=== PATIENT | female | born 1960 | race Caucasian/White ===

== ENCOUNTER 2016-12-19 06:01 | Day surgery (SDC) | payer OTHER ==
--- NOTE | 2016-12-18 17:38 | HP ---
PREOPERATIVE HISTORY AND PHYSICAL: DATE OF ADMISSION: 12/19/16 PROVIDER: Aries Toney MD * (DICTATED BY LEONOR VILA) CHIEF COMPLAINT: Left knee pain. HISTORY OF PRESENT ILLNESS: Karoline is a 56-year-old female who has been followed by Dr. Toney for ongoing complaints of left knee pain. 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 She has had difficulty walking on it, she has been using a brace. She has tried physical therapy, she has tried activity modification. She still reports significant swelling and more catching sensations in the knee. She also feels as though the knee gives way. She continues to have pain with limping and pain with squatting. She is interested in surgical intervention for the correction of the problem at this point. PAST MEDICAL HISTORY: High cholesterol, COPD, asthma, high blood pressure, type 2 diabetes, depression, anxiety and Lyme disease. PAST SURGICAL HISTORY: Tubal ligation and then subsequent reversal as well as a neuroma excision in her foot. She reports no complications with anesthesia with either of those procedures. CURRENT MEDICATIONS: 1. Aspirin 81 mg p.o. daily. 2. ProAir HFA 108 mcg/ACT 2 puffs inhaled q.4 hours as needed. 3. Spiriva 2.5 mcg/ACT 2 puffs daily. 4. Venlafaxine HCl ER 150 mg 1 p.o. daily. 5. Lisinopril 20 mg 1 p.o. daily. 6. Naproxen 500 mg 1 tab p.o. b.i.d. p.r.n. 7. Albuterol sulfate nebulizer as needed. 8. Flonase Allergy Relief 50 mcg/ACT 1 spray each nostril b.i.d. 9. Atorvastatin 40 mg 1 p.o. daily. 10. Doxycycline 100 mg p.o. b.i.d. ALLERGIES: WELLBUTRIN and LATEX. SOCIAL HISTORY: The patient lives with her spouse, she works as a FINISHER MACHINE; however , she has been out of work since the time of her injury. The patient does smoke just under 1 pack of cigarettes per day and has for several years. She denies alcoholic beverages. She does exercise regularly. REVIEW OF SYSTEMS: Constitutional: Negative for recent hospitalizations, fevers, chills, night sweats, or unexplained weight loss. HEENT: Negative for headaches, lightheadedness, or balance problems. Negative for sore throat, runny nose, frequent nose bleeds or congestion. Negative for blurred or double vision. Negative for any changes to her hearing. Cardiovascular: Negative for chest or arm pain with exertion, history of a heart attack, heart murmur, heart palpitations. Positive for high blood pressure. Negative for embolism or deep vein thrombosis. Respiratory: Positive for chronic cough and shortness of breath with exertion. Positive for history of COPD and asthma. Gastrointestinal : Negative for heartburn, nausea, or vomiting. Positive for diarrhea due to her antibiotics. Positive for occasional heartburn. Negative for GERD. Negative for constipation. Genitourinary: Negative for nighttime urination, frequency of urination, urinary tract infections, or kidney problems. Musculoskeletal: Negative for chronic back pain or recent facture. Skin: Negative for rashes, lesions, lumps, or sores. Neurologic negative for seizure , stroke, epilepsy, or depression. Positive for anxiety. Endocrine: Positive for diabetes. Negative for thyroid problems. Hematology: Negative for easy bleeding, bruising, or anemia. PHYSICAL EXAMINATION GENERAL: She is a well-developed, well-nourished pleasant female, in no acute distress at rest. She is alert and oriented x3 with appropriate mood and affect. VITAL SIGNS: The patient is 5 feet 4 inches, 185 pounds. Blood pressure 126/72 , pulse 110, respirations 16, temperature 98.4. HEENT: Normocephalic, atraumatic. Her hearing and vision are grossly intact. NECK: Her trachea is midline. RESPIRATORY: She has some diffuse expiratory wheezing bilaterally with decreased breath sounds to the bases. No appreciated rales or rhonchi. CARDIOVASCULAR: Regular rate and rhythm. No murmurs, rubs, or gallops. Normal S1 and S2. ABDOMEN: Soft, nondistended, and nontender. She has normoactive bowel sounds. EXTREMITIES: Her left lower extremity, skin is intact without abrasions or open wounds. She has a moderate joint effusion. She is tender about the fat pad anteriorly as well as the patellar tendon. She is mildly tender on the joint lines but not specifically. She has 3 to 115 degrees of flexion. She has a stable varus and valgus stress test and a stable Gregory's test. Calf is soft and nontender. She has sensation to light touch in all nerve distributions distally. She has 2+ dorsalis pedis pulse. IMPRESSION: Left knee fat pad friction syndrome. PLAN/RECOMMENDATIONS: The patient is to undergo a left knee arthroscopic surgery and debridement by Dr. Toney on 12/19/16. The risks, benefits, and postoperative course were discussed with the patient at length and she would like to proceed. All of her questions were answered to her full satisfaction. She has understanding to call should she develop any problems or concerns. LEONOR VILA [id number]/CPS #: [id number] MTDD
[~2016-12-19 06:01] MED LIST: Buffered Lidocaine 0.9% SYRIN* 5 ML/SYR SYRINGE INTRADERM ONE; Dexamethasone IV* 4 MG/ML 1 ML (4 MG) IV SLOW PU ONE; Famotidine IV* 10 MG/ML 2 ML (20 mg) IV ONE; Levalbuterol 0.63MG/3ML NEB INH ONE
[2016-12-19] MEDS ORDERED: Dexamethasone IV* 4 MG/ML 1 ML (4 MG) ONE (06:09)
[2016-12-19] MEDS ORDERED: Famotidine IV* 10 MG/ML 2 ML (20 mg) ONE (06:09)
[2016-12-19] MEDS ORDERED: Buffered Lidocaine 0.9% SYRIN* 5 ML/SYR SYRINGE ONE (06:09)
[2016-12-19] MEDS ORDERED: Levalbuterol 1.25MG/0.5ML NEB ONE (06:10)
[2016-12-19] MEDS ORDERED: Bupivacaine 0.25% SDV* 30 ML ONE (06:52)
[2016-12-19] MEDS ORDERED: Ondansetron INJ* 2 MG/ML VIAL ONE (07:15)
[2016-12-19] MEDS ORDERED: Propofol* 10 MG/ML 20 ML BTL IV PUSH ONE (07:15)
[2016-12-19] MEDS ORDERED: Ketorolac INJ* 30 MG/ML 1 ML VIAL ONE (07:15)
[2016-12-19] MEDS ORDERED: Midazolam* 1 MG/ML 5 ML VIAL (5 MG) ONE (07:15)
[2016-12-19] MEDS ORDERED: Chloroprocaine 2%* 20 ML VIAL ONE (07:16)
[2016-12-19] MEDS ORDERED: DiMENhydriNATE IV* 50 MG/ML VIAL IV PUSH PRN (08:02)
[2016-12-19] MEDS ORDERED: fentaNYL* 50 MCG/ML 2 ML VIAL (100 MCG VIAL) IV PRN (08:02)
[2016-12-19] MEDS ORDERED: oxyCODONE/Acetamin 5/325 MG* TAB PO PRN (08:02)
[2016-12-19] MEDS ORDERED: Ondansetron INJ* 2 MG/ML VIAL IV PRN (08:02)
[2016-12-19] MEDS ORDERED: methylPREDNISolone ACETATE 80* 80 MG/ML 1 ML VIAL ONE (08:18)
[2016-12-19 10:07] VITALS: BP 109/87
--- NOTE | 2016-12-19 13:44 | OP ---
DATE OF OPERATION: 12/19/16 [facility] DATE OF : 58 SURGEON: Aries Toney MD. OPERATING TABLE ASSEMBLER: LEONOR Yang. An neurosurgical physician assistant was needed for the entirety of the case to help with positioning, retraction, and was utilized throughout all portions of the case. ANESTHESIOLOGIST: Dr. Alvarado. ANESTHESIA: Spinal with MAC. PRE-OP DIAGNOSIS: Left knee patellar tendinitis and fat pad impingement. POST-OP DIAGNOSIS: Fat pad impingement, patellar tendinitis, chondrosis along the patellofemoral medial compartment as well as loose body. OPERATIVE PROCEDURE: 1. Left knee arthroscopy with anterior medial lateral synovectomy. 2. Chondroplasty of the medial compartment and patellofemoral compartment as well as removal of loose bodies x2, greater than 5 mm. 3. Intraarticular injection of 80 mg of Depo-Medrol. INDICATIONS: Karoline Garcia is 56-year-old female who sustained a work-related injury to her knee. She has failed conservative management. She had tried extensive physical therapy and had good response to injection. Her working diagnosis was impingement. She did not demonstrate significant arthritis on her MRI, and, therefore, surgery was discussed. Risks and benefits of the surgery versus nonoperative treatment were discussed at length. They include, but were not limited to, bleeding, infection, damage to nerves, vessels, surrounding structures, wound nonhealing, persistent pain, need for further surgery, scarring, stiffness, persistent pain, incomplete relief of symptoms, risk of DVT, risk of anesthesia, and need for further surgery. She has elected to proceed. DESCRIPTION OF PROCEDURE: The patient was greeted in the preoperative area by the attending surgeon. Correct extremity was marked and consent was confirmed. The patient was brought back to the operating suite where she was placed in the supine position on the operating table. She then was sat up and underwent a spinal anesthesia, after which the left leg was examined. She had a mild effusion. Range of motion is about 0 to 130 degrees, stable to varus and valgus stress. Stable Gregory. An unsterile tourniquet was placed high on the proximal thigh. A lateral post was positioned. The leg was then prepped and draped in the usual sterile fashion beginning with chlorhexidine soap, scrub and alcohol wipe and a final prep with ChloraPrep. After appropriate surgical pause indicating side, site, and procedure, administration of antibiotics, the anterolateral portal was made with a #11 blade. The scope was introduced into the joint. The joint was examined. There was grade 2 changes of the patella, grade 1 changes of the trochlea. There was obvious medial plica that was present. There was also a lateral plica that was apparent or a large shelf of synovial tissue that was present laterally. The scope was brought along the medial gutter and there were small loose bodies that were evident. The knee was then brought into full extension. There was abundant fat pad that was present there as well as some chondrosis along the edges of the notch. The medial port was made in outside-in fashion. The shaver was used to remove the abundant fat pad that was present as well as the medial plica and lateral shelf of tissues. The tissue is very friable. The electrocautery device was then used to maintain hemostasis at all times. At this point, the medial compartment was evaluated. The meniscus was intact. The medial femoral condyle had areas of grade 2 changes with unstable flaps as well as a large loose body that was present that was about 5 mm. The second one was identified as well in the notch. This was then removed. The shaver was then used to debride the medial femoral condyle. The medial tibial plateau had an area of grade 4 changes along the periphery just under the medial meniscus. The rest of the tibial plateau had grade 3 and 2 changes as well as a small area of grade 4 complete absence of cartilage. The shaver was used to debride the medial femoral condyle. The knee was placed in [id number] and the lateral compartment was examined. The lateral femoral condyle, lateral tibial plateau had grade 0 to 1 changes. Lateral meniscus was intact. The knee was placed in full extension. The remaining synovitis was then carefully removed and hemostasis obtained. The unstable fragments were debrided back and chondroplasty was completed. Once the procedure was completed, all fluid and debris was then removed from the knee. The knee was thoroughly lavaged. Final images were obtained. The portals were closed with 3-0 nylon in an interrupted fashion. The knee was intra-articularly injected with 80 mg of Depo-Medrol and 30 cc of 0.25% Marcaine plain. Sterile dressings were applied as well as cryo/ Cuff. She was awoken from anesthesia and transferred to PACU in stable condition. POSTOPERATIVE PLAN: She will be weightbearing as tolerated. She will be discharged on pain medications as well as aspirin. She will be allowed to work on range of motion. I will likely place her on physical therapy next week. She will follow up in the office in 10 to 14 days. She will be. like I said, on aspirin for DVT prophylaxis. Also, she has no previous family history or personal history. [id number]/[facility] #: [id number] EMMA
== END 2016-12-19 10:28 | disposition home or self-care (01) ==
LOC: OR 06:01
PROVIDERS: ATTEND Orthopaedic Surgery
DX: M67.52 Plica syndrome, left knee (principal); M76.52 Patellar tendinitis, left knee; M25.462 Effusion, left knee; M25.862 Other specified joint disorders, left knee; M23.42 Loose body in knee, left knee; E11.65 Type 2 diabetes mellitus with hyperglycemia; Z79.84 Long term (current) use of oral hypoglycemic drugs; F17.210 Nicotine dependence, cigarettes, uncomplicated; J44.9 Chronic obstructive pulmonary disease, unspecified; I10 Essential (primary) hypertension
CPT/HCPCS: A9270-GY; J1040; J1100; J1885; J2250; J2400; J2405; J2704

== ENCOUNTER 2017-05-30 11:32 | Inpatient (IN) | payer OTHER ==
--- NOTE | 2017-06-28 21:01 | HP ---
HISTORY AND PHYSICAL: DATE OF ADMISSION/SURGERY: 07/09/17 DATE OF OFFICE VISIT: 06/26/17 SURGEON: Shante Ridley MD *(DICTATED BY LEONOR ARMSTRONG) PROCEDURE: Left total knee arthroplasty. CHIEF COMPLAINT: Left knee pain. HISTORY OF PRESENT ILLNESS: Ms. Garcia is a 56-year-old female with continued complaints of left knee pain secondary to end-stage osteoarthritis. She has failed conservative management and elected to proceed with a left total knee arthroplasty, which is scheduled for 07/09/[address] Ridley. PAST MEDICAL HISTORY: Sleep apnea, diabetes, COPD, and hypertension. PAST SURGICAL HISTORY: Tubal ligation and reversal of tubal ligation, laparoscopy, and nerve surgery on both feet. CURRENT MEDICATIONS: 1. Percocet. 2. Rosuvastatin calcium 40 mg daily. 3. Lisinopril 40 mg daily. 4. Nicotrol 10 mg as needed. 5. Ibuprofen 600 mg as needed. 6. Aspirin 81 mg daily. 7. Venlafaxine 225 mg daily nebulizer as needed. 8. Vitamin D. 9. Spiriva. 10. Ventolin inhaler. 11. CPAP. 12. Victoza. ALLERGIES: To WELLBUTRIN and LATEX. FAMILY HISTORY: Prostate and bladder cancer, multiple sclerosis, stroke, and diabetes. SOCIAL HISTORY: She is a 56-year-old female. She lives alone. She smokes about a pack a day for the last 30 years. She denies use of drugs or alcohol. REVIEW OF SYSTEMS: A complete 14-point review of systems was reviewed with the patient, was positive for diabetes, GERD, COPD, and shortness of breath. She denies history of DVT, PE, hepatitis C, or HIV. PHYSICAL EXAMINATION GENERAL: She is well-developed, well-nourished, in no acute distress. VITAL SIGNS: She stands 5 feet 4 inches tall, weighs 204 pounds. Her blood pressure is 130/84, her heart rate is 100. HEENT: Normocephalic, atraumatic. NECK: Supple. No palpable lymph nodes. PULMONARY: The lungs are clear to auscultation bilaterally. CARDIO: Regular rate and rhythm. Strong S1, S2. ABDOMEN: Soft, nontender, and nondistended. NEUROLOGIC: She is alert and oriented x3. Cranial nerves II through XII are intact. MUSCULOSKELETAL: Left lower extremity: The skin is intact. There are no open wounds or abrasions. She has a moderate effusion in the left knee, 10 to 120 degrees of flexion. Some tenderness over the medial joint line. No varus or valgus instability. 2+ dorsalis pedis pulses. 5/5 lower extremity strength and intact sensation. ASSESSMENT AND PLAN: Ms. Garcia is a 56-year-old female, who has end-stage osteoarthritis of the left knee. She has failed conservative management and elected to proceed with a left total knee arthroplasty, which is scheduled for 07/09/[address] Ridley discussed the risks and benefits of the surgery at today's visit. All her questions were answered. Coumadin was sent to her pharmacy for postoperative DVT prophylaxis. She has a prescription for Percocet at this time. She will follow up with Dr. Ridley 2 weeks after the surgery. LEONOR ARMSTRONG [id number]/[facility] #: [id number] MTDVaibhav
[2017-07-08] MEDS ORDERED: Buffered Lidocaine 0.9% SYRIN* 5 ML/SYR SYRINGE INTRADERM ONE (13:49)
[2017-07-09] MEDS ORDERED: Famotidine IV* 10 MG/ML 2 ML (20 mg) IV ONE (06:00)
[2017-07-09] MEDS ORDERED: Gabapentin CAP(*) 300 MG PO ONE (06:00)
[2017-07-09] MEDS ORDERED: Levalbuterol 0.63MG/3ML NEB* UNIT OF USE INH ONE ×2 (07:00→13:10)
[2017-07-09] MEDS ORDERED: ceFAZolin 2 GM in 100 MLS NS (*) BAG IVPB ONE (08:58)
[2017-07-09] MEDS ORDERED: Levalbuterol 1.25MG/0.5ML NEB ONE (08:58)
[2017-07-09] MEDS ORDERED: Famotidine IV* 10 MG/ML 2 ML (20 mg) ONE (08:58)
[2017-07-09] MEDS ORDERED: Buffered Lidocaine 0.9% SYRIN* 5 ML/SYR SYRINGE ONE (08:58)
[2017-07-09] MEDS ORDERED: Gabapentin CAP(*) 300 MG ONE (09:18)
[2017-07-09] MEDS ORDERED: Lidocaine 1% INJ* 10 MG/ML 30 ML SDV ONE (10:20)
[2017-07-09] MEDS ORDERED: ROPIVACAINE 5 MG/ML 30 ML BTL (0.5%) ONE (10:21)
[2017-07-09] MEDS ORDERED: fentaNYL* 50 MCG/ML 2 ML VIAL (100 MCG VIAL) ONE (10:24)
[2017-07-09] MEDS ORDERED: Midazolam* 1 MG/ML 5 ML VIAL (5 MG) ONE (10:24)
[2017-07-09] MEDS ORDERED: Propofol* 10 MG/ML 20 ML BTL IV PUSH ONE (12:36)
[2017-07-09] MEDS ORDERED: Ketorolac INJ* 30 MG/ML 1 ML VIAL ONE (12:36)
[2017-07-09] MEDS ORDERED: Ondansetron INJ* 2 MG/ML VIAL ONE (12:36)
[2017-07-09] MEDS ORDERED: EPHEDrine (Pressors)* 50 MG/ML VIAL ONE (12:36)
[2017-07-09] MEDS ORDERED: Dexamethasone IV* 4 MG/ML 1 ML (4 MG) ONE (12:36)
[2017-07-09] MEDS ORDERED: diPHENhydraMINE IV* 50 MG/ML 1 ml VIAL (BENADRYL) IV PRN ×2 (13:10→13:46)
[2017-07-09] MEDS ORDERED: Levalbuterol 0.63MG/3ML NEB* UNIT OF USE INH PRN (13:10)
[2017-07-09] MEDS ORDERED: Naloxone* 0.4 MG/ML 1 ML VIAL IV PRN (13:10)
[2017-07-09] MEDS ORDERED: fentaNYL* 50 MCG/ML 2 ML VIAL (100 MCG VIAL) IV PRN (13:10)
[2017-07-09] MEDS ORDERED: Ondansetron INJ* 2 MG/ML VIAL IV PRN (13:46)
[2017-07-09] MEDS ORDERED: Magnesium Hydroxide LIQ* 30 ML UDC PO PRN (13:46)
[2017-07-09] MEDS ORDERED: Ondansetron TAB* 4 MG PO PRN (13:46)
[2017-07-09] MEDS ORDERED: Morphine INJ* 2 MG/ML 1 ML CARPUJECT IV PRN (13:46)
[2017-07-09] MEDS ORDERED: oxyCODONE/Acetamin 5/325 MG* TAB PO PRN (13:46)
[2017-07-09] MEDS ORDERED: Bisacodyl SUPP* 10 MG SUPP PR PRN (13:46)
[2017-07-09] MEDS ORDERED: Docusate CAP* 100 MG PO PRN (13:46)
[2017-07-09] MEDS ORDERED: ceFAZolin 1 GM in Dextrose (*) 1 GM/50 ML BAG IVPB SCH (14:00)
[2017-07-09] MEDS ORDERED: Albuterol HFA INHALER* 8 gm MDI INH PRN (14:01)
[2017-07-09] MEDS ORDERED: OXYGEN 1 UNIT INH PRN (14:01)
[2017-07-09] MEDS: oxyCODONE/Acetamin 5/325 MG* TAB PO PRN ×2 (15:07→15:56)
[2017-07-09] MEDS ORDERED: oxyCODONE/Acetamin 5/325 MG* TAB ONE ×2 (15:07→15:55)
--- NOTE | 2017-07-09 15:12 | RAD ---
HISTORY: Status post left knee arthroplasty COMPARISONS: February 27, 2017 VIEWS: 2, Frontal and lateral views of the left kidney FINDINGS: BONE DENSITY: Normal. BONES: The patient is status post left knee arthroplasty. There is no hardware failure or osteolysis. JOINTS: The patient is status post left knee arthroplasty. ALIGNMENT: There is no dislocation. SOFT TISSUES: There is post surgical change to the soft tissues. OTHER FINDINGS: None. IMPRESSION: STATUS POST LEFT KNEE ARTHROPLASTY.
[2017-07-09] MEDS ORDERED: Dextrose 50% Syringe 50 ML* 25 GM/50 ML SYRINGE IV PUSH PRN (15:18)
[2017-07-09] MEDS ORDERED: Albuterol/Ipratropium NEB.SOL* Albuterol 2.5 MG/Ipratropium 0.5 MG 3 ML INH PRN (15:22)
[2017-07-09] MEDS ORDERED: Mouth Piece, Nicotine* 1 EACH CARTRIDGE INH PRN (15:31)
[2017-07-09] MEDS ORDERED: Nicotine Inhaler* 10 MG AMP INH PRN (15:31)
[2017-07-09] MEDS ORDERED: LIRAGLUTIDE SUBCUT SCH (18:00)
[2017-07-09] MEDS ORDERED: Warfarin TAB(*) 6 MG PO ONE (18:00)
[2017-07-09] MEDS ORDERED: [UNRECOGNIZED DRUG - OTHER] SUBCUT SCH (18:00)
[2017-07-09] MEDS: Nicotine PATCH 21 MG/24 HR* PATCH TRANSDERM SCH (18:07)
[2017-07-09] MEDS: Venlafaxine EXT RELEASE CAP* 75 MG PO SCH (18:09)
[2017-07-09] MEDS: Lisinopril TAB* 10 MG PO SCH (18:10)
[2017-07-09] MEDS: Atorvastatin* 40 MG TAB PO SCH (18:10)
[2017-07-09] MEDS: Enoxaparin(*) 40 MG/0.4 ML SYR SUBCUT SCH (18:10)
[2017-07-09] MEDS: Insulin LISPRO* 1 UNITS UNIT SUBCUT SCH ×2 (18:11→21:40)
[2017-07-09] MEDS: Cyclobenzaprine TAB* 10 MG PO PRN (18:23)
[2017-07-09] MEDS: oxyCODONE TAB* 5 MG TAB PO PRN (18:59)
[2017-07-09] MEDS: ceFAZolin 1 GM* Q8H x 3 doses IVPB SCH ×2 (20:02)
[2017-07-09] MEDS ORDERED: Gabapentin CAP(*) 300 MG PO SCH (21:00)
--- NOTE | 2017-07-09 21:19 | CONS ---
ADDENDUM NOW INCLUDED ON THIS REPORT CC: Rohini Vallejo NP; Dr. Ridley * CONSULTATION REPORT: DATE OF CONSULT: 07/09/17 PRIMARY CARE PROVIDER: Rohini Vallejo NP REASON FOR CONSULTATION: Management of hypertension, COPD and diabetes in a patient after a knee surgery. HISTORY OF PRESENT ILLNESS: Mrs. Garcia is a 56-year-old female with history of COPD who still smokes a pack a day of cigarettes. Has history also of diabetes and hypertension and presented to the hospital for elective left knee replacement. The patient is seen postoperatively in the PACU unit. She is currently unsure how she feels after the surgery, but she has no acute complaints. She is being seen for comanagement of medical comorbidities after an elective left knee surgery. PAST MEDICAL HISTORY: 1. Obstructive sleep apnea, noncompliant with CPAP. 2. Diabetes type 2. 3. COPD, not oxygen dependent. 4. History of hypertension. 5. Status post tubal ligation. 6. History of Black neuroma removal in both feet. MEDICATIONS: At home include: 1. Gabapentin 300 mg at bedtime. 2. Percocet on a p.r.n. basis. 3. Effexor 225 mg daily. 4. Spiriva 1 inhalation daily. 5. Metformin 500 mg b.i.d. 6. Ibuprofen on a p.r.n. basis. 7. Lipitor 40 mg daily. 8. Aspirin 81 mg daily. 9. Victoza 0.6 mL subcutaneously daily. 10. Breo Ellipta 1 puff daily. 11. Albuterol inhaler on a p.r.n. basis. 12. Vitamin D3 50,000 units weekly. 13. Lisinopril 40 mg daily. ALLERGIES: WELLBUTRIN, LATEX and MORPHINE. FAMILY HISTORY: Positive for father who secondary to prostate cancer at the age of 73. Mother with history of multiple sclerosis and strokes who in her 60s. SOCIAL HISTORY: The patient has a history of smoking 1 pack per day. She currently smokes and has been doing so for over 30 years. She denies any drug or alcohol use. She lives alone. She has a daughter, Cynthia Garcia, who is her surrogate. The patient plans to stay with her daughter postoperatively. REVIEW OF SYSTEMS: Please see history of present illness. All the remaining 12 systems are reviewed with the patient and are otherwise negative. PHYSICAL EXAM: Blood pressure of 141/71, heart rate of 82 and regular, respiratory rate 16, oxygen saturation 97% on 2 L of oxygen nasal cannula, temperature 97.5. General: The patient is a very pleasant 56-year-old female, who is in no acute distress. Alert, awake, and oriented x3. HEENT: Head atraumatic, normocephalic. Eyes: Pupils are equal, reactive to light and accommodation. Oropharynx clear. Mucosa moist. Neck: Supple. No JVD, no bruits bilaterally. Cardiovascular: Regular rate and rhythm with no murmur. Respiratory: Scant wheezes at bilateral bases, otherwise clear. Abdomen: Soft , nontender. Bowel sounds are present in all 4 quadrants. Extremities: There is no edema. Pulses +2 bilaterally. No clubbing or cyanosis. The left knee is in the postoperative state with cryo unit in place and a drain. Neuro Evaluation: Speech clear. Cranial nerves II through XII grossly intact. Motor strength is 5/5 bilaterally. The postoperative knee was not evaluated for range of motion. LABORATORY DATA: None currently. ASSESSMENT AND PLAN: 1. In regards to the patient's postoperative status of status post left knee replacement, the patient already was started on Lovenox and Coumadin per Orthopedic Surgery. 2. For hypertension, her lisinopril is going to be continued. 3. For her chronic obstructive pulmonary disease, the patient is going to be placed on DuoNebs on a p.r.n. basis. She is going to be continued with Breo Ellipta as well as Spiriva on a scheduled basis. Currently, she does not appear to be in exacerbation. 4. For her dyslipidemia, Lipitor is going to be continued. 5. In regards to the DVT prophylaxis, please see above. The patient was already placed on Lovenox and Coumadin. Thank you very much for allowing me to see your patient in consultation. We will see the patient on a daily basis. TIME SPENT: Approximately 55 minutes were spent on consultation of this patient. ADDENDUM: 07/10/17 3859 Please note that the very next day after my initial consultation with the patient when she was seen in PACU, when the patient saw me, she did not recall my face. When I asked her about the use of prednisone and oxygen previously, she stated that she is not using it. Today, she stated that of course Dr. Ramirez prescribed her prednisone that she had been on for the past week and she is taking 20 mg a day. She also stated that she was prescribed oxygen per Dr. Ramirez to be used continuously. She stated that something happened to the prescription and she actually did not have that oxygen delivered to her house yet. I suspect that part of the information that I received from the patient postoperatively was confounded by the patient being on IV narcotics. [id number]/CPS #: [id number]/CPS #: [id number] [facility] CAMPUSVaibhav
[2017-07-09] MEDS: Magnesium Hydroxide LIQ* 30 ML UDC PO SCH (21:40)
[2017-07-09] MEDS: Nicotine Patch Removal NOTE PATCH OFF SCH (21:43)
[2017-07-09] MEDS ORDERED: HYDROmorphone INJ* 1 MG/ML CARPUJECT SYRINGE IV PRN (22:18)
[2017-07-09] MEDS ORDERED: Ketorolac INJ* 15 MG/ML 1 ML VIAL IV PUSH ONE (22:18)
[2017-07-10] MEDS: oxyCODONE TAB* 5 MG TAB PO PRN ×2 (03:01→07:18)
[2017-07-10] MEDS: ceFAZolin 1 GM* Q8H x 3 doses IVPB SCH ×4 (03:54→12:53)
[2017-07-10 06:19] LABS: Hematocrit 29 % (35-47); Hemoglobin 9.5 g/dl (12.0-16.0); Mean Platelet Volume 7 um3 (7.4-10.4); Platelet Count 218 10^3/ul (150-450)
[2017-07-10 06:27] LABS: INR 0.91 (0.77-1.02)
[2017-07-10 06:33] LABS: EGFR Non-African American 107.2 (>60)
[2017-07-10] MEDS: Insulin LISPRO* 1 UNITS UNIT SUBCUT SCH ×4 (08:08→20:18)
[2017-07-10] MEDS: metFORMIN* 500 MG TAB PO SCH ×2 (08:08→16:51)
[2017-07-10] MEDS ORDERED: Tiotropium CAP.INH* CAP.INH/18 MCG (USE ORDER SET !) INH SCH (09:00)
[2017-07-10] MEDS ORDERED: Spiriva Inhaler DEVICE* 1 EACH DEVICE INH ONE (09:00)
[2017-07-10] MEDS ORDERED: predniSONE TAB* 20 MG PO SCH (09:00)
[2017-07-10] MEDS: PTO: Fluticasone/Vilanterol MDI(NF) 200/25 MDI INH SCH (09:04)
[2017-07-10] MEDS: Magnesium Hydroxide LIQ* 30 ML UDC PO SCH ×2 (09:04→20:17)
[2017-07-10] MEDS: PTO: Tiotropium Respimt 2.5 mcg(NF) 1 PUFF MDI INH SCH (09:04)
[2017-07-10] MEDS: Nicotine PATCH 21 MG/24 HR* PATCH TRANSDERM SCH (09:04)
[2017-07-10] MEDS: Vitamin THERAPEUTIC TAB PO SCH (09:05)
[2017-07-10] MEDS ORDERED: HYDROcodone/ACETAMIN 5-325 MG* 1 TAB PO PRN (09:33)
--- NOTE | 2017-07-10 09:39 | PN ---
Progress Note - Progress Note Date of Service: 07/10/17 SOAP: Subjective: []Patient seen at bedside. Left knee is currently painful in the joint and in the thigh. She takes oxycodone at home and does not feel oxycodone or percocet are controlling her pain. Morphine makes her feel very anxious and she does not want to take it. Denies leg numbness, CP, SOB, fever, chills or nausea. Objective: [] Vital Signs Temp 96.8 F 07/10/17 07:32 Pulse 92 07/10/17 07:32 Resp 16 07/10/17 07:32 BP 143/89 07/10/17 07:32 Pulse Ox 95 07/10/17 07:32 Intake & Output 07/09/17 07/10/17 07/10/17 18:59 06:59 18:59 Intake Total 2600 1690 Output Total 700 1075 Balance 1900 615 Weight 201 lb Intake: IV Fluids 2600 1035 ABX - CEFAZOLIN 55 LR 2600 980 IVPB 55 ABX - CEFAZOLIN 55 Oral 600 Output: Urine 550 Kinsey 700 525 Laboratory Last Values Hgb 9.5 g/dl (12.0-16.0) L 07/10/17 05:48 Hct 29 % (35-47) L 07/10/17 05:48 Plt Count 218 10^3/ul (150-450) 07/10/17 05:48 MPV 7 um3 (7.4-10.4) L 07/10/17 05:48 INR (Anticoag Therapy) 0.91 (0.77-1.02) 07/10/17 05:48 Sodium 135 mmol/L (133-145) 07/10/17 05:48 Potassium 4.6 mmol/L (3.5-5.0) 07/10/17 05:48 Chloride 105 mmol/L (101-111) 07/10/17 05:48 Carbon Dioxide 26 mmol/L (22-32) 07/10/17 05:48 Anion Gap 4 mmol/L (2-11) 07/10/17 05:48 BUN 13 mg/dL (6-24) 07/10/17 05:48 Creatinine 0.58 mg/dL (0.51-0.95) 07/10/17 05:48 Est GFR ( Amer) 137.8 (>60) 07/10/17 05:48 Est GFR (Non-Af Amer) 107.2 (>60) 07/10/17 05:48 BUN/Creatinine Ratio 22.4 (8-20) H 07/10/17 05:48 Glucose 203 mg/dL (70-100) H 07/10/17 05:48 POC Glucose (mg/dL) 302 mg/dL (70-100) H 07/09/17 21:26 Calcium 8.8 mg/dL (8.6-10.3) 07/10/17 05:48 General: Well appearing, NAD LLE: Left knee dressing CDI, cryo unit in use. DF/PF intact. DP 2+. Sensation intact and capillary refill less than two seconds distally. BL LE: Calves supple and nontender without erythema, edema or palpable cords. Assessment: []POD 1 s/p left total knee arthroplasty 07/09, Dr. Ridley Plan: []WBAT PT/OT Lovenox, coumadin 8 mg today Plan for DC tomorrow if pain controlled with PO meds. Changed from percocet to norco and cyclobenzaprine
[2017-07-10] MEDS: HYDROcodone/ACETAMIN 5-325 MG* 1 TAB PO PRN ×3 (11:05→23:32)
[2017-07-10] MEDS: Cyclobenzaprine TAB* 10 MG PO PRN ×2 (11:05→20:18)
--- NOTE | 2017-07-10 13:30 | PN ---
Subjective Date of Service: 07/10/17 Interval History: Pt feels fine, although the left knee hurts and she falls sleep" all the time". Objective Active Medications: Hydrocodone Bitart/Acetaminophen ([place] 5-325 Tab*) 1 tab PO Q4H PRN PRN Reason: PAIN - MILD TO MODERATE Hydrocodone Bitart/Acetaminophen ([place] 5-325 Tab*) 2 tab PO Q4H PRN PRN Reason: PAIN - MODERATE TO SEVERE Last Admin: 07/10/17 11:05 Dose: 2 tab Albuterol (Ventolin Hfa Inhaler*) 2 puff INH Q4H PRN PRN Reason: SHORTNESS OF BREATH Albuterol/Ipratropium (Duoneb (Albuterol 2.5 Mg/Ipratropium 0.5 Mg)) 1 neb INH Q6H PRN PRN Reason: SOB/WHEEZING Atorvastatin Calcium (Lipitor*) 40 mg PO QPM [facility] Last Admin: 07/09/17 18:10 Dose: 40 mg Bisacodyl (Dulcolax Supp*) [address] DAILY PRN PRN Reason: constipation Cyclobenzaprine HCl (Flexeril Tab*) 10 mg PO TID PRN PRN Reason: SPASMS Last Admin: 07/10/17 11:05 Dose: 10 mg Device (Nicotine Mouth Piece*) 1 each INH .USE WITH NICOTROL PRN PRN Reason: CRAVING Dextrose (D50w Syringe 50 Ml*) 12.5 gm IV PUSH .FOR FS < 60 - SS PRN PRN Reason: FS < 60 Diphenhydramine HCl (Benadryl Iv*) 25 mg IV Q6H PRN PRN Reason: itching Docusate Sodium (Colace Cap*) 100 mg PO BID PRN PRN Reason: CONSTIPATION Enoxaparin Sodium (Lovenox(*)) 40 mg SUBCUT Q24H [facility] Last Admin: 07/09/17 18:10 Dose: 40 mg Fluticasone/Vilanterol (Breo Ellipta Mdi 200/25(Nf)) 1 puff INH QAM [facility] Last Admin: 07/10/17 09:04 Dose: 1 puff Gabapentin (Neurontin Cap(*)) 300 mg PO BEDTIME [facility] Last Admin: 07/09/17 21:36 Dose: 300 mg Hydromorphone HCl (Dilaudid Injic*) 0.5 mg IV Q2H PRN PRN Reason: PAIN Insulin Human Lispro (Humalog*) 0 units SUBCUT ACHS [facility] PRN Reason: Protocol Last Admin: 07/10/17 12:52 Dose: 4 units Lisinopril (Prinivil Tab*) 40 mg PO QPM [facility] Last Admin: 07/09/17 18:10 Dose: 40 mg Magnesium Hydroxide (Milk Of Magnesia Liq*) 30 ml PO BID [facility] Last Admin: 07/10/17 09:04 Dose: Not Given Magnesium Hydroxide (Milk Of Magnesia Liq*) 30 ml PO Q6H PRN PRN Reason: constipation Metformin HCl (Glucophage*) 500 mg PO BID WITH MEALS [facility] Last Admin: 07/10/17 08:08 Dose: 500 mg Multivitamins (Theragran Tab*) 1 tab PO DAILY [facility] Last Admin: 07/10/17 09:05 Dose: 1 tab Nicotine (Nicotine Patch 21 Mg/24 Hr*) 1 patch TRANSDERM DAILY [facility] Last Admin: 07/10/17 09:04 Dose: 1 patch Nicotine (Nicotine Inhaler*) 10 mg INH Q2H PRN PRN Reason: CRAVING Ondansetron HCl (Zofran Inj*) 4 mg IV Q6H PRN PRN Reason: nausea Ondansetron HCl (Zofran Tab*) 4 mg PO Q6H PRN PRN Reason: NAUSEA Pharmacy Profile Note (Nicotine Patch Removal Note*) 1 note PATCH OFF 2100 [facility] Last Admin: 07/09/17 21:43 Dose: Not Given Pharmacy Profile Note (Coumadin Daily Reminder*) 1 note FOLLOW UP 1700 [facility] Prednisone (Deltasone Tab*) 10 mg PO DAILY [facility] Tiotropium [place] (Spiriva Respimat 2.5 Mcg(Nf)) 2 puff INH DAILY [facility] Last Admin: 07/10/17 09:04 Dose: Not Given Venlafaxine HCl (Effexor Xr Cap*) 225 mg PO QPM [facility] Last Admin: 07/09/17 18:09 Dose: 225 mg Warfarin Sodium (Coumadin Tab(*)) 8 mg PO ONCE@1700 ONE PRN Reason: Protocol Stop: 07/10/17 17:01 Vital Signs - 8 hr 07/10/17 07/10/17 07/10/17 05:37 07:18 07:31 Temperature Pulse Rate Respiratory 16 18 18 Rate Blood Pressure (mmHg) O2 Sat by Pulse 93 Oximetry 07/10/17 07/10/17 07/10/17 07:32 11:05 11:30 Temperature 96.8 F 98.7 F Pulse Rate 92 98 Respiratory 16 18 16 Rate Blood Pressure 143/89 117/62 (mmHg) O2 Sat by Pulse 95 92 Oximetry 07/10/17 12:53 Temperature Pulse Rate Respiratory 18 Rate Blood Pressure (mmHg) O2 Sat by Pulse Oximetry Oxygen Devices in Use Now: None - 02 on RA at 86%, placed on 2 L 02, sats up to 92%, pt in NAD Appearance: 56 yo F in nAD, aAOx3 Eyes: No Scleral Icterus, PERRLA Ears/Nose/Mouth/Throat: NL Teeth, Lips, Gums, Mucous Membranes Moist Neck: NL Appearance and Movements; NL JVP, Trachea Midline Respiratory: Symmetrical Chest Expansion and Respiratory Effort, - - scant bibasiliar wheezes Cardiovascular: NL Sounds; No Murmurs; No JVD, RRR Abdominal: NL Sounds; No Tenderness; No Distention Lymphatic: No Cervical Adenopathy Extremities: No Edema, No Clubbing, Cyanosis Skin: No Rash or Ulcers, No Nodules or Sclerosis, - - surgical dressings to left knee, not removed Neurological: Alert and Oriented x 3, NL Muscle Strength and Tone Result Diagrams: 07/10/17 05:48 07/10/17 05:48 Assess/Plan/Problems-Billing Assessment: 56 yo F with h/o COPD(02 dependent on Prednisone started 1 week go) , HTN, DM 2, s/p elective left knee replacement - Patient Problems (1) Knee joint replacement status Comment: as per Dr. Ridley's service (2) DM2 (diabetes mellitus, type 2) Comment: cont metformin and ISS (3) HTN (hypertension) Comment: cont lisinopril (4) COPD (chronic obstructive pulmonary disease) Comment: with exacerbation, started on prednisone 1 week ago-will cont at same dose will start 02 at 2L cont home inhalers (5) Postoperative anemia due to acute blood loss Comment: Hb fell to an expected 9.5 from 11.5 at baseline post op (6) DVT prophylaxis Comment: lovenox sc Status and Disposition: medicine consult
[2017-07-10] MEDS: predniSONE TAB* 20 MG PO SCH (14:12)
[2017-07-10] MEDS ORDERED: oxyCODONE TAB* 5 MG TAB PO PRN (14:30)
[2017-07-10] MEDS ORDERED: Acetaminophen TAB* 325 MG PO PRN (14:38)
[2017-07-10] MEDS ORDERED: Warfarin TAB(*) 4 MG PO ONE (17:00)
[2017-07-10] MEDS: Lisinopril TAB* 10 MG PO SCH (17:49)
[2017-07-10] MEDS: Venlafaxine EXT RELEASE CAP* 75 MG PO SCH (17:49)
[2017-07-10] MEDS: Atorvastatin* 40 MG TAB PO SCH (17:49)
[2017-07-10] MEDS: Enoxaparin(*) 40 MG/0.4 ML SYR SUBCUT SCH (17:49)
[2017-07-10] MEDS: Gabapentin CAP(*) 300 MG PO SCH (20:17)
[2017-07-10] MEDS: Nicotine Patch Removal NOTE PATCH OFF SCH (20:17)
--- NOTE | 2017-07-10 21:07 | CONS ---
ADDENDUM: Please note that the very next day after my initial consultation with the patient when she was seen in PACU, when the patient saw me, she did not recall my face. When I asked her about the use of prednisone and oxygen previously, she stated that she is not using it. Today, she stated that of course Dr. Ramirez prescribed her prednisone that she had been on for the past week and she is taking 20 mg a day. She also stated that she was prescribed oxygen per Dr. Ramirez to be used continuously. She stated that something happened to the prescription and she actually did not have that oxygen delivered to her house yet. I suspect that part of the information that I received from the patient postoperatively was confounded by the patient being on IV narcotics. [id number]/[facility] #: [id number] EMMA
--- NOTE | 2017-07-10 22:06 | OP ---
DATE OF OPERATION: 07/09/17 - ROOM #342 DATE OF : 58 ATTENDING SURGEON: Shante Ridley MD BOX FABRICATOR: LEONOR Haq. Ms. Brown did help throughout the procedure with preparation of the leg, wound retraction, manipulation of the knee and wound closure. ANESTHESIOLOGIST: Dr. Calderon. ANESTHESIA: Spinal. PRE-OP DIAGNOSIS: Severe end-stage degenerative osteoarthritis of the left knee joint. POST-OP DIAGNOSIS: Severe end-stage degenerative osteoarthritis of the left knee joint. OPERATIVE PROCEDURE: Left total knee arthroplasty. TOURNIQUET TIME: 51 minutes. COMPLICATIONS: None. SPECIMENS: Bone and cartilage from the left knee joint sent to pathology. HARDWARE USED: This is cemented [employer] total knee arthroplasty hardware. Two packages of simplex bone cement were used. For the femur, a left size 4, narrow Oxinium Legion femoral component. For the tibia, a size 3 left tibial base plate Gladis II. For the insert, a 5 mm posterior stabilized articular insert, size 3-4. For the patella, a 32 mm 3-peg all poly patella with 7.5 thickness. BRIEF HISTORY/INDICATION: Ms. Garcia is a 56-year-old female who had a Workman's Comp injury many years ago. She developed posttraumatic osteoarthritis of the left knee joint involving the medial and patellofemoral compartments. Radiograph showed [id number] arthritis. She failed conservative treatment with the anti- inflammatories, pain medication, intraarticular injections, and physical therapy. Due to continued pain and decreased quality of life, she elected to undergo a left total knee arthroplasty. Informed consent was obtained from the patient. She understood the risks of surgery included, but were not limited to bleeding, infection, damage to nearby structures, continued pain, need for further surgery, intraoperative fracture, nerve palsy, hardware failure or loosening, knee stiffness, loss of motion, stroke, heart attack, blood clot and . She wished to proceed. INTRAOPERATIVE FINDINGS: Intraoperatively, the patient was noted to have complete loss of cartilage along the medial and patellofemoral compartments. DESCRIPTION OF PROCEDURE: Ms. Garcia was identified in the preanesthesia unit. Her left lower extremity was marked as the correct operative side. Informed consent was signed and placed in the chart. The patient was taken to the operating room and placed under spinal anesthesia. Kinsey catheter was placed. Tourniquet was placed on the left thigh. The left lower extremity was prepped and draped in the usual sterile fashion. Preop time-out was made to correctly identify the patient, side and site. Appropriate perioperative antibiotics were given within 1 hour of incision. A 12-cm midline incision was made with the 10 blade and carried down to the extensor mechanism. A new 10 blade was used to make a standard medial parapatellar arthrotomy. Patella was subluxed laterally. Electrocautery was used to elevate soft tissue off the superomedial tibia to the mid sagittal plane. The knee was flexed up. The anterior horn of the lateral meniscus and ACL were sharply released. A drill was used to enter the distal femur. Intramedullary distal femoral cutting guide was pinned on the distal femur. Oscillating saw was used to make the distal femoral cut. The external rotation guide was pinned on the distal femur and the femur was sized to a size 4. Size 4 multi-cutting jig was pinned on the distal femur. Oscillating saw was used to make the appropriate 4 chamfer cuts. The PCL was completely released. The tibia was subluxed anteriorly. Extramedullary tibial cutting guide was pinned on the proximal tibia. The oscillating saw was used to the make the proximal tibial cut perpendicular to the mechanical axis of the tibia. The bone was carefully removed. The knee was brought out into full extension. A spacer block had excellent fit. The medial and lateral ligaments were well balanced. Flexion and extension gaps were well balanced. The knee was flexed up and the lamina mortgage coordinator was placed both medially and laterally. Electrocautery was used to remove any remaining meniscus. Curved osteotome was used to remove any posterior osteophytes. Tibial tray and drop mickey were placed to once again confirm a satisfactory tibial cut and this was confirmed. A left size 4 narrow femoral trial was impacted on to the distal femur and had excellent fit. The box for the posterior stabilized implant was prepared using a reamer and box cut osteotome. A size 3 tibial tray trial with a 9-mm insert trial was placed, and the knee was taken through a range of motion. The knee had full extension to 130 degrees of flexion with good patellofemoral tracking. The patella was everted. 7 mm of patellar bone and cartilage was removed with an oscillating saw. The patella was sized to a size 32. The 3 pegs were drilled through the size 32 guide. A 7.5 mm thickness trial was placed and the knee was taken through a range of motion. There was satisfactory patellofemoral tracking. All trials were carefully removed. The tibia was subluxed anteriorly and sized to a size 3. Proximal tibia was prepared using a size 3 keel punch. All bony cut surfaces were copiously irrigated with sterile saline and dried. Final implants were cemented into place starting with the tibia followed by the femur and last the patella. A 9-mm insert trial was placed and the knee was brought out into full extension. The tourniquet was turned down at 51 minutes. The knee was copiously irrigated with sterile saline. Electrocautery was used to obtain meticulous hemostasis. Once the cement had fully cured, the insert trial was removed. Any excess cement was removed from around the capsule and trial. Final insert chosen was a 9-mm posterior stabilized articular insert, size 3-4. This was locked into position on the tibial tray. Stability of the insert was checked and rechecked and noted to be stable. The extensor mechanism was closed using interrupted #1 Vicryl over a median Hemovac drain. The rest of the incision was closed in a layered fashion using 0 and 2-0 Vicryl. The skin was closed using running 3-0 nylon suture. Sterile Xeroform, 4x4s, and Webril were used to cover the incision. Toño wrap and cold pack were placed over this. The patient's anesthesia was reversed without difficulty. She was taken to the PACU in stable condition. Intended weight- bearing will be weightbearing as tolerated. Intended DVT prophylaxis will be Coumadin with a Lovenox bridge. [id number]/[facility] #: [id number] [facility] HEALTHVaib[facility]
[2017-07-11] MEDS: HYDROcodone/ACETAMIN 5-325 MG* 1 TAB PO PRN ×3 (03:45→13:09)
[2017-07-11] MEDS: Gabapentin CAP(*) 300 MG PO SCH ×2 (05:11→13:05)
[2017-07-11 06:20] LABS: Hematocrit 27 % (35-47); Hemoglobin 8.8 g/dl (12.0-16.0); Mean Platelet Volume 7 um3 (7.4-10.4); Platelet Count 209 10^3/ul (150-450)
[2017-07-11 06:37] LABS: INR 1.02 (0.77-1.02)
[2017-07-11] MEDS: metFORMIN* 500 MG TAB PO SCH (07:56)
[2017-07-11] MEDS: Nicotine PATCH 21 MG/24 HR* PATCH TRANSDERM SCH (08:27)
[2017-07-11] MEDS: Insulin LISPRO* 1 UNITS UNIT SUBCUT SCH ×2 (08:27→13:05)
[2017-07-11] MEDS: PTO: Fluticasone/Vilanterol MDI(NF) 200/25 MDI INH SCH ×2 (08:27→08:33)
[2017-07-11] MEDS: Vitamin THERAPEUTIC TAB PO SCH (08:27)
[2017-07-11] MEDS: predniSONE TAB* 20 MG PO SCH (08:27)
[2017-07-11] MEDS: PTO: Tiotropium Respimt 2.5 mcg(NF) 1 PUFF MDI INH SCH (08:28)
[2017-07-11] MEDS: Magnesium Hydroxide LIQ* 30 ML UDC PO SCH (08:38)
[2017-07-11] MEDS ORDERED: predniSONE TAB* 10 MG PO SCH (09:00)
[2017-07-11 09:58] VITALS: BP 118/59
[2017-07-11] MEDS ORDERED: Scopolamine 1.5 mg* PATCH TRANSDERM SCH (11:00)
--- NOTE | 2017-07-11 12:20 | PN ---
Progress Note - Progress Note Date of Service: 07/11/17 SOAP: Subjective: []Patient seen OOB in chair. She desires discharge. Left knee pain is well controlled. Denies chest pain, shortness of breath, dizziness and nausea. Objective: [] Vital Signs Temp 98.6 F 07/11/17 08:32 Pulse 105 07/11/17 08:32 Resp 18 07/11/17 11:36 BP 118/59 07/11/17 08:32 Pulse Ox 91 07/11/17 09:53 Intake & Output 07/10/17 07/11/17 07/11/17 18:59 06:59 18:59 Intake Total 1241 650 Output Total 300 1670 Balance 941 -1020 Intake: IV Fluids 741 ABX - CEFAZOLIN 50 LR 691 Oral 500 650 Output: Urine 300 1670 Laboratory Last Values Hgb 8.8 g/dl (12.0-16.0) L 07/11/17 05:10 Hct 27 % (35-47) L 07/11/17 05:10 Plt Count 209 10^3/ul (150-450) 07/11/17 05:10 MPV 7 um3 (7.4-10.4) L 07/11/17 05:10 INR (Anticoag Therapy) 1.02 (0.77-1.02) 07/11/17 05:10 Sodium 135 mmol/L (133-145) 07/10/17 05:48 Potassium 4.6 mmol/L (3.5-5.0) 07/10/17 05:48 Chloride 105 mmol/L (101-111) 07/10/17 05:48 Carbon Dioxide 26 mmol/L (22-32) 07/10/17 05:48 Anion Gap 4 mmol/L (2-11) 07/10/17 05:48 BUN 13 mg/dL (6-24) 07/10/17 05:48 Creatinine 0.58 mg/dL (0.51-0.95) 07/10/17 05:48 Est GFR ( Amer) 137.8 (>60) 07/10/17 05:48 Est GFR (Non-Af Amer) 107.2 (>60) 07/10/17 05:48 BUN/Creatinine Ratio 22.4 (8-20) H 07/10/17 05:48 Glucose 203 mg/dL (70-100) H 07/10/17 05:48 POC Glucose (mg/dL) 176 mg/dL (70-100) H 07/11/17 11:35 Calcium 8.8 mg/dL (8.6-10.3) 07/10/17 05:48 General: Well appearing, NAD LLE: Left knee dressing changed by Dr pastrana this morning without complication. Dressing CDI, cryo unit in use. DF/PF intact. DP 2+. Sensation intact and capillary refill less than two seconds distally. BL LE: Calves supple and nontender without erythema, edema or palpable cords. Assessment: []POD 2 s/p left total knee arthroplasty 07/09, Dr. Pastrana Plan: []WBAT PT/OT Lovenox, coumadin 6 mg today DC home
--- NOTE | 2017-07-12 14:13 | DS ---
DISCHARGE SUMMARY: DATE OF ADMISSION: 07/09/17 DATE OF DISCHARGE: 07/11/17 DATE OF OPERATION: 07/09/17 PROVIDER: Dr. Shante Ridley* (dictated by LEONOR Moise). OFFICE COORDINATOR RECEPTIONIST: LEONOR Haq PRE-OP DIAGNOSIS: Severe end-stage degenerative osteoarthritis of the left knee joint. OPERATIVE PROCEDURE: Left total knee arthroplasty. HISTORY: Ms. Garcia is a 56-year-old female who had a Workers' Comp injury many years ago. She developed posttraumatic osteoarthritis of the left knee joint involving the medial and patellofemoral components. Radiographs showed bone-on- bone arthritis. She failed conservative treatment and elected to undergo a left total knee arthroplasty. HOSPITAL COURSE: Ms. Garcia was admitted to [facility] on . She underwent a left total knee arthroplasty without complication. She recovered briefly in the PACU and then was transferred in stable condition to the short-stay surgical unit. On postop day #1, the patient was well appearing , in no acute distress. Left knee dressing was clean, dry, and intact. Drain was pulled by Dr. Ridley without complications. Cryo Unit was in use. Dorsiflexion and plantarflexion intact. Dorsalis pedis pulses 2+. Sensation intact distally. Capillary refill less than 2 seconds distally. Calves supple and nontender without erythema, edema, or palpable cords. Hemoglobin 9.5, hematocrit 29, INR 0.91. The patient was also seen by the hospitalist service on postop day 1. Her prednisone and oxygen as the patient uses at home were restarted due to oxygen saturations into the 80s and at one point into the 70s with ambulation. On postop day 2, the patient was well-appearing, in no acute distress. Her left knee dressing was changed by Dr. Ridley this morning without complications. Dressing clean, dry, and intact. She was seemed to be medically and orthopedically stable for discharge home. Postop day 2 labs; hemoglobin 8.8, hematocrit 27, INR 1.02. MEDICATIONS AT DISCHARGE: 1. Prednisone 20 mg p.o. q.a.m. 2. Venlafaxine 225 mg p.o. q.p.m. 3. Metformin 500 mg p.o. b.i.d. 4. Aspirin 81 mg p.o. q.p.m. to be held until the patient is done with Coumadin. 5. Atorvastatin 40 mg p.o. q.p.m. 6. Spiriva 2 puffs inhaled q.a.m. 7. Percocet 5/325 discontinued at home. 8. Cholecalciferol 50,000 units p.o. weekly, please hold this for 1 week, you may resume next week. 9. Lisinopril 40 mg p.o. q.p.m. 10. Victoza 3-Francois to 0.3 mL subcutaneously q.p.m. 11. Oxygen as directed at home. 12. Breo 1 puff of 200/25 inhaled q.a.m. 13. Gabapentin 300 mg p.o. t.i.d. as needed, resume regular dose of 300 mg p.o. at bedtime as you are able. 14. Acetaminophen 650 mg p.o. q.4 hours p.r.n., max daily dose of 4000. 15. Docusate 100 mg p.o. b.i.d. p.r.n. 16. Addis 5/325 one to two tabs every 4 to 6 hours p.r.n., max daily dose of 10. 17. Oxycodone as corrected with the pharmacy 5 mg q.8 hours p.r.n., max daily dose of 3. 18. Prednisone 20 mg p.o. daily. 19. Warfarin 2 mg tablets 1 to 3 tabs depending on INR dosing. 20. Gabapentin as directed above. 21. Aspirin 81 mg p.o. q.p.m., resume after you are done taking morphine. DISCHARGE PLAN: Weightbearing as tolerated. Okay to shower on 07/12/17. Coumadin dosing 07/11/17, 6 mg; 07/12/17, 4 mg; 07/13/17, 2 mg. Recheck INR for new dose instructions on 07/15/17. Pain control, Addis 5/325 one to two tabs by mouth every 4 to 6 hours as needed for pain, maximum of 10 tabs per day. Gabapentin 300 mg 1 tab every 8 hours as needed for pain, alternate Addis and gabapentin. Oxycodone for breakthrough pain 5 mg 1 tab every 8 hours as needed. The patient was given a scopolamine patch before leaving, please remove this patch within 3 days. Follow up with Dr. Ridley within 10 to 14 days , sooner if needed. LEONOR ALVARADO [id number]/[facility] #: [id number] EMMA
[2017-07-14] MEDS ORDERED: Scopolamine PATCH Remove* 1 NOTE MISC PATCH OFF SCH (11:00)
== END 2017-07-11 15:10 | disposition home health service (06) | DRG 302 ==
LOC: AA 07-09 08:28 → SSU 07-09 16:54
PROVIDERS: ADMIT Orthopaedic Surgery Adult Reconstructive Orthopaedic Surgery; ATTEND Orthopaedic Surgery Adult Reconstructive Orthopaedic Surgery
PROC: 0SRD069 Replacement of Left Knee Joint with Oxidized Zirconium on Polyethylene Synthetic Substitute, Cemented, Open Approach (ICD-10-PCS; principal; 2017-07-09 11:00)
DX: M17.32 Unilateral post-traumatic osteoarthritis, left knee (principal); E11.40 Type 2 diabetes mellitus with diabetic neuropathy, unspecified; Z99.81 Dependence on supplemental oxygen; D62 Acute posthemorrhagic anemia; J44.1 Chronic obstructive pulmonary disease with (acute) exacerbation; X58.XXXS Exposure to other specified factors, sequela; I10 Essential (primary) hypertension; E78.5 Hyperlipidemia, unspecified; F41.9 Anxiety disorder, unspecified; F17.210 Nicotine dependence, cigarettes, uncomplicated; G47.33 Obstructive sleep apnea (adult) (pediatric); K21.9 Gastro-esophageal reflux disease without esophagitis; M25.762 Osteophyte, left knee; Z88.8 Allergy status to other drugs, medicaments and biological substances; Z91.040 Latex allergy status; Z83.3 Family history of diabetes mellitus; Z80.42 Family history of malignant neoplasm of prostate; Z80.52 Family history of malignant neoplasm of bladder; Z79.52 Long term (current) use of systemic steroids; T14.90XS Injury, unspecified, sequela; Z79.82 Long term (current) use of aspirin; Z82.3 Family history of stroke; Z88.5 Allergy status to narcotic agent; Z91.19 Patient's noncompliance with other medical treatment and regimen; Z79.84 Long term (current) use of oral hypoglycemic drugs; Z79.01 Long term (current) use of anticoagulants; Z82.0 Family history of epilepsy and other diseases of the nervous system
CPT/HCPCS: 36415; 80048; 85014; 85018; 85049; 85610; 88305; 88311; 94760; A9270-GY; C1776; J0690; J1100; J1650; J1885; J2250; J2405; J2704; J2795; J3010; J7512

== ENCOUNTER 2017-08-02 12:09 | Emergency (ER) | payer OTHER ==
[2017-08-02] MEDS ORDERED: NS 0.9% 1000 ML* 1,000 ML IV ONE (12:40)
[2017-08-02 13:26] LABS: ABS Basophils 0 10^3/ul (0-0.2); ABS Eosinophils 0.1 10^3/ul (0-0.6); ABS Lymphocytes 2.1 10^3/ul (1.0-4.8); ABS Monocytes 0.6 10^3/ul (0-0.8); ABS Neutrophils 5.5 10^3/ul (1.5-7.7); ABS Nucleated RBC 0 10^3/ul; Eosinophil % 1.1 % (0-6); Hematocrit 32 % (35-47); Hemoglobin 10.1 g/dl (12.0-16.0); Lymphocyte % 24.7 % (25-47); Mean Corpuscular HGB Conc 32 g/dl (31-36); Mean Corpuscular Hemoglobin 26 pg (27-31); Mean Corpuscular Volume 81 fL (80-97); Mean Platelet Volume 6.8 um3 (7.4-10.4); Nucleated Red Blood Cells % 0; Platelet Count 418 10^3/ul (150-450); Red Blood Count 3.89 10^6/ul (4.0-5.4); Red Cell Distribution Width 19 % (10.5-15); White Blood Count 8.4 10^3/ul (3.5-10.8)
[2017-08-02 13:37] LABS: EGFR Non-African American 111.6 (>60)
[2017-08-02] MEDS ORDERED: Famotidine IV * 20 MG in NS 0.9% 100 ML* 100 ML IV ONE (13:59)
[2017-08-02] MEDS ORDERED: Famotidine IV* 10 MG/ML 2 ML (20 mg) ONE (14:12)
--- NOTE | 2017-08-02 14:13 | ED ---
Kaylan Barlow Julia, scribed for Jia Connell MD on 08/02/17 at 1401 . Complex/Multi-Sys Presentation - HPI Summary HPI Summary: This patient is a 56 year old F [facility] accompanied by her daughter and partner with a chief complaint of swelling around a tooth in the same location as a previous dental infection since 07/29/17. Patient states the swelling has significantly improved while in ED. Pt states he dentist called in abx yesterday, but has not filled. Patient reports intermittent nausea, dehydration, and poison taste in mouth with difficulty eating or drinking. Patient denies vomiting and diarrhea. Patient states nausea is not relived by nausea patch (scopolamine). Due to nausea she has not taken her medication, eaten, or drank since yesterday afternoon. Patient states Patient had a total left knee replacement on 07/09/17, by Dr. Ridley, and has been taking Hydrocodone and Warfarin since then. She states her Coumadin levels were checked yesterday and were good. She will be done with Coumadin on 08/06/17. Prior to my face to face eval, pt received IV fluids. Pt states this had made her feel "so much better" - pt requesting some po. Her partner states this is the most alert she has been in the past few days. Pt's medications reviewed this visit. - History Of Current Complaint Chief Complaint: EDWeakness Time Seen by Provider: 08/02/17 12:39 Hx Obtained From: Patient, Family/Self Defense Instructor Onset/Duration: Gradual Onset, Lasting Days Timing: Constant Location: Pain At: - swelling in mouth Associated Signs And Symptoms: Positive: Nausea, Other - dehydration, and poison in mouth with difficulty eating or drinking. Negative: Vomiting, Diarrhea Related History: Recent Hospitalization - recent surgery - Allergies/Home Medications Allergies/Adverse Reactions: Allergies Allergy/AdvReac Type Severity Reaction Status Date / Time bupropion Allergy Rash Verified 08/02/17 12:17 latex Allergy Hives Verified 08/02/17 12:17 morphine AdvReac Anxiety Verified 08/02/17 12:17 SEASONAL Allergy Eyes Uncoded 08/02/17 12:17 Itchy/Swollen/Red/Watery PMH/Surg Hx/FS Hx/Imm Hx Previously Healthy: Yes Endocrine/Hematology History: Reports: Hx Diabetes - on medication Cardiovascular History: Reports: Hx Hypertension, Hx Peripheral Vascular Disease Denies: Hx Pacemaker/ICD, Other Cardiovascular Problems/Disorders Respiratory History: Reports: Hx Asthma, Hx Chronic Obstructive Pulmonary Disease (COPD), Hx Sleep Apnea - DX 2016, Other Respiratory Problems/Disorders - COPD, SMOKER GI History: Denies: Other GI Disorders History: Denies: Hx Renal Disease, Other Problems/Disorders Musculoskeletal History: Reports: Hx Arthritis - POSSIBLE, Other Musculoskeletal History - LEFT KNEE INJURY Sensory History: Reports: Hx Contacts or Glasses - CONTACTS Denies: Hx Hearing Aid Opthamlomology History: Reports: Hx Contacts or Glasses - CONTACTS Neurological History: Reports: Hx Migraine - RARELY, Other Neuro Impairments/ Disorders - 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 LEFT KNEE REPLACEMENT 07/09/17 Hx Anesthesia Reactions: No Infectious Disease History: No Infectious Disease History: Denies: History Other Infectious Disease, Traveled Outside the [place] in Last 30 Days - Family History Known Family History: Positive: Cardiac Disease - many cousins w/ RI's in their 40's - Social History Occupation: Unemployed Lives: With Family Alcohol Use: None Hx Substance Use: No Substance Use Type: Reports: None, Prescribed Hx Tobacco Use: Yes Smoking Status (MU): Light Every Day Tobacco Smoker Amount Used/How Often: A LITTLE LESS THAN A PACK A DAY Have You Smoked in the Last Year: Yes Review of Systems Positive: Other - dehydration ENT: Other - dental edema Positive: Other - "poison" taste while eating or drinking Positive: Nausea. Negative: Vomiting, Diarrhea All Other Systems Reviewed And Are Negative: Yes Physical Exam Triage Information Reviewed: Yes Vital Signs On Initial Exam: Initial Vitals Temp Pulse Resp BP Pulse Ox 98.3 F 116 18 126/74 100 08/02/17 12:17 08/02/17 12:17 08/02/17 12:17 08/02/17 12:17 08/02/17 12:17 Vital Signs Reviewed: Yes Appearance: Positive: Well-Appearing, No Pain Distress, Well-Nourished Skin: Positive: Warm, Skin Color Reflects Adequate Perfusion, Dry Eyes: Positive: Normal, EOMI, SHAUN ENT: Positive: Normal ENT inspection, Hearing grossly normal, Pharynx normal, TMs normal Dental: Positive: Other - Pt with mod decay #29 with filling and visible cavity + TTP no fluctucance. mild edema at buccal gumline no fluctuance, no discharge Neck: Positive: Supple, Nontender, No Lymphadenopathy Respiratory/Lung Sounds: Positive: Clear to Auscultation, Breath Sounds Present , Decreased Breath Sounds Cardiovascular: Positive: Normal, RRR. Negative: Murmur Abdomen Description: Positive: No Organomegaly, Soft. Negative: Nontender - soft, very mild epigastric pain. No guarding, no rebound. Bowel Sounds: Positive: Present Musculoskeletal: Positive: Normal Neurological: Positive: Normal, Sensory/Motor Intact, Alert, Oriented to Person Place, Time Psychiatric: Positive: Normal AVPU Assessment: Alert - [place] Coma Scale Best Eye Response: 4 - Spontaneous Best Motor Response: 6 - Obeys Commands Best Verbal Response: 5 - Oriented Coma Scale Total: 15 Diagnostics - Vital Signs Vital Signs Temp Pulse Resp BP Pulse Ox 08/02/17 12:17 98.3 F 116 18 126/74 100 - Laboratory Lab Results: Lab Results 08/02/17 08/02/17 Range/Units 12:59 12:59 WBC 8.4 (3.5-10.8) 10^3/ul RBC 3.89 L (4.0-5.4) 10^6/ul Hgb 10.1 L (12.0-16.0) g/dl Hct 32 L (35-47) % MCV 81 (80-97) fL MCH 26 L (27-31) pg MCHC 32 (31-36) g/dl RDW 19 H (10.5-15) % Plt Count 418 (150-450) 10^3/ul MPV 6.8 L (7.4-10.4) um3 Neut % (Auto) 66.3 (38-83) % Lymph % (Auto) 24.7 L (25-47) % Kinney % (Auto) 7.5 H (0-7) % Eos % (Auto) 1.1 (0-6) % Baso % (Auto) 0.4 (0-2) % Absolute Neuts (auto) 5.5 (1.5-7.7) 10^3/ul Absolute Lymphs (auto) 2.1 (1.0-4.8) 10^3/ul Absolute Monos (auto) 0.6 (0-0.8) 10^3/ul Absolute Eos (auto) 0.1 (0-0.6) 10^3/ul Absolute Basos (auto) 0 (0-0.2) 10^3/ul Absolute Nucleated RBC 0 10^3/ul Nucleated RBC % 0 Sodium 134 (133-145) mmol/L Potassium 3.8 (3.5-5.0) mmol/L Chloride 105 (101-111) mmol/L Carbon Dioxide 22 (22-32) mmol/L Anion Gap 7 (2-11) mmol/L BUN 12 (6-24) mg/dL Creatinine 0.56 (0.51-0.95) mg/dL Est GFR ( Amer) 143.5 (>60) Est GFR (Non-Af Amer) 111.6 (>60) BUN/Creatinine Ratio 21.4 H (8-20) Glucose 116 H (70-100) mg/dL Calcium 9.3 (8.6-10.3) mg/dL Result Diagrams: 08/02/17 12:59 08/02/17 12:59 Lab Statement: Any lab studies that have been ordered have been reviewed, and results considered in the medical decision making process. Re-Evaluation - Re-Evaluation First Eval Change: Improved - Pt states feels well and requesting d/c home. reviewed labs and urine pt taking po crackers without difficulty Will Rx pepcid Complex Multi-Symp Course/Dx Course Of Treatment: Pt presents for complaint of recurrent dental pain in tooth with previous infection. Pt also reports nausea, mild epigastric pain and metallic taste in mouth Pt is 1 month s/p knee replacement and is on coumadin. On exam pt with pain # #29 tooth, mild edema at gumline. pt with mild epigastric discomfort but overall looks well. Will finish ivf. labs, urine. pepcid. po trial. pt comfortable and in agreement with plan - Diagnoses Provider Diagnoses: Nausea, Dental abscess Discharge - Sign-Out/Discharge Documenting (check all that apply): Discharge - Discharge Plan Condition: Stable Disposition: HOME Prescriptions: Famotidine TAB* [Pepcid 20 MG TAB*] 20 mg PO DAILY #14 tab Patient Education Materials: Acute Nausea and Vomiting (ED), Toothache (ED) Referrals: Rohini Terry NP [Primary Care Provider] - Additional Instructions: - Take antibiotics as prescribed for your dental infection - It is important to stay well hydrated - water, gatorade, popsicles - okay to gargle and spit with warm, salt water - it is recommended you eat small, frequent meals - Avoid spicy food, acidic food, citric food - contact your dentist to schedule a follow-up appointment for your tooth. it is also recommended you schedule a follow-up appointment with your primary doctor. - Billing Disposition and Condition Condition: STABLE Disposition: HOME The documentation as recorded by the Kaylan cardona Julia accurately reflects the service I personally performed and the decisions made by me, Jia Connell MD.
[2017-08-02 14:24] LABS: Urine Appearance Cloudy; Urine Blood Negative (Negative); Urine Color Yellow; Urine Ketones Negative (Negative); Urine Protein Negative (Negative); Urine Specific Gravity 1.015 (1.010-1.030); Urine Urobilinogen Negative (Negative)
[2017-08-02 14:48] VITALS: BP 122/74
== END 2017-08-02 14:47 | disposition home or self-care (01) ==
LOC: ED 12:09
DX: K04.7 Periapical abscess without sinus (principal); R11.0 Nausea; E86.0 Dehydration
CPT/HCPCS: 36415; 80048; 81003; 83735; 85025; 96374; 99282

== ENCOUNTER 2020-03-09 14:30 | Observation (INO) ==
[2020-03-09] MEDS ORDERED: NS 0.9% 1000 ml BAG 1,000 ML IV ONE (14:33)
[2020-03-09 15:12] LABS: ABS Basophils 0.1 10^3/ul (0-0.2); ABS Eosinophils 0.1 10^3/ul (0-0.6); ABS Monocytes 0.6 10^3/ul (0-0.8); ABS Neutrophils 6.1 10^3/ul (1.5-7.7); Eosinophil % 0.9 %; Hematocrit 41 % (35-47); Hemoglobin 14.1 g/dL (12.0-16.0); Lymphocyte % 37.1 %; Mean Corpuscular HGB Conc 34 g/dL (31-36); Mean Corpuscular Hemoglobin 32 pg (27-31); Mean Corpuscular Volume 94 fL (80-97); Mean Platelet Volume 7.2 fL (7.4-10.4); Platelet Count 273 10^3/uL (150-450); Red Blood Count 4.35 10^6 /uL (3.70-4.87); Red Cell Distribution Width 14 % (10-15); White Blood Count 10.9 10^3/uL (3.5-10.8)
[2020-03-09 15:22] LABS: Activated Partial Thrombo Time 25.9 seconds (26.0-38.0); INR 0.93 (0.82-1.09)
[2020-03-09 15:37] LABS: BUN/Creatinine Ratio 14.3 (8-20); Calcium 9.4 mg/dL (8.6-10.3); EGFR African American 133.6 (>60); EGFR Non-African American 110.4 (>60); Globulin 3.9 g/dL (2-4); HDL Cholesterol 37.9 mg/dL; Potassium 4.1 mmol/L (3.5-5.0); Total Bilirubin 0.4 mg/dL (0.2-1.0); Total Protein 7.9 g/dL (6.4-8.9)
[2020-03-09] MEDS ORDERED: Iodixanol (CONTRAST) 320 MG/ML 100 ML SDV IV ONE (15:55)
[2020-03-09] MEDS ORDERED: Ondansetron 4 mg VIAL 2 MG/ML 2 ml VIAL IV PRN (15:59)
[2020-03-09] MEDS ORDERED: Dextrose 50% Syringe 50 ml 25 GM/50 ML SYRINGE IV PUSH PRN (16:04)
[2020-03-09 16:44] LABS: Urine Appearance Cloudy; Urine Bilirubin Negative (Negative); Urine Blood Negative (Negative); Urine Color Yellow; Urine Glucose Negative (Negative); Urine Ketones Negative (Negative); Urine Nitrite Negative (Negative); Urine Protein Negative (Negative); Urine Specific Gravity 1.014 (1.010-1.030); Urine Urobilinogen Negative (Negative)
[2020-03-09 16:46] LABS: Urine Bacteria 1+ (Absent); Urine Red Blood Cell Trace(0-2/hpf) (Absent); Urine Squamous Epithelial Cell Present (Absent); Urine White Blood Cell Trace(0-5/hpf) (Absent)
[2020-03-09 16:49] LABS: TSH Ultra Thyroid Stim Horm 0.67 mcIU/mL (0.34-5.60)
[2020-03-09] MEDS ORDERED: Enoxaparin 40 MG/0.4 ML SYR SUBCUT SCH (18:00)
[2020-03-09] MEDS ORDERED: Albuterol HFA INHALER 8 gm MDI INH PRN (18:01)
[2020-03-09] MEDS: Nicotine PATCH 21 MG/24 HR PATCH TRANSDERM SCH (19:33)
[2020-03-10 06:17] LABS: BUN/Creatinine Ratio 17.5 (8-20); Calcium 9.2 mg/dL (8.6-10.3); EGFR African American 116.6 (>60); EGFR Non-African American 96.4 (>60); Magnesium 1.9 mg/dL (1.9-2.7); Potassium 4.3 mmol/L (3.5-5.0)
[2020-03-10 07:50] VITALS: BP 137/72
[2020-03-10] MEDS: Nicotine PATCH 21 MG/24 HR PATCH TRANSDERM SCH (08:04)
[2020-03-10] MEDS ORDERED: Aspirin EC 81 mg TAB.EC (enteric coated) PO SCH (09:00)
[2020-03-10] MEDS ORDERED: Mometasone/Formoter 100/5 MDI INH SCH (09:00)
[2020-03-10] MEDS ORDERED: SPIRIVA Respimat (tiotropium) 2.5 mcg/inh Inhaler INH SCH (09:00)
== END 2020-03-10 10:00 | disposition home or self-care (01) ==
LOC: MEDTELE 14:30 → ED 14:30
PROVIDERS: ADMIT Pediatrics; ATTEND Pediatrics